=== PATIENT | female | born 1950 | race Two or more races ===

== ENCOUNTER 2024-12-26 07:36 | Outpatient (CLI) | payer OTHER | END 2024-12-26 07:37 | disposition home or self-care (01) | LOC: NUCLEAR 07:36 | PROVIDERS: ATTEND Surgery | DX: C50.412 Malignant neoplasm of upper-outer quadrant of left female breast (principal) | CPT/HCPCS: 78816; A9552 ==

== ENCOUNTER 2025-01-16 06:18 | Day surgery (SDC) | payer OTHER ==
[2025-01-15 12:54] VITALS: BP 136/76
[~2025-01-16] VITALS: Ht 160 cm; Wt 124.7 kg
[~2025-01-16 06:18] MED LIST: ANASTROZOLE1 MG PO; BUMETANIDE0.5 MG PO; CARTIA XT240 MG PO; CLONAZEPAM2 MG PO; DIOVAN40 MG PO; ELIQUIS5 MG PO; ISOSORBIDE DINI30 MG; LEVOTHYROXINE88 MC1 PO; LIPITOR20 MG PO; MELATONIN10 M3; OPSUMIT10 MG PO
[2025-01-16] MEDS ORDERED: CHLORHEXIDINE GLUCONATE 120 ML BOTTLE TOP ONE (17:00)
[2025-01-16] MEDS ORDERED: CIPROFLOXACIN IN 5 % DEXTROSE 400 MG/200 ML PIGGYBAG IV ONE (17:00)
[2025-01-16] MEDS ORDERED: MORPHINE SULFATE 4 MG/ML VIAL IV ONE ×2 (18:25→18:55)
== END 2025-01-16 20:30 | disposition home or self-care (01) ==
LOC: CIR.AMB 06:18
PROVIDERS: ATTEND Surgery
DX: C50.412 Malignant neoplasm of upper-outer quadrant of left female breast (principal); Z88.0 Allergy status to penicillin